=== PATIENT | male | born 1990 | race African-American/Black ===

== ENCOUNTER 2017-06-08 07:01 | Emergency (ER) | payer MEDICAID, OTHER | END 2017-06-08 08:20 | disposition left against medical advice (07) | LOC: ER 07:26 | DX: R05 Cough (principal); R10.9 Unspecified abdominal pain; R11.2 Nausea with vomiting, unspecified; Z53.21 Procedure and treatment not carried out due to patient leaving prior to being seen by health care provider ==

== ENCOUNTER 2018-01-31 13:50 | Emergency (ER) | payer MEDICAID, OTHER ==
[~2018-01-31] VITALS: Ht 172.7 cm; Wt 60.0 kg
[2018-01-31] MEDS ORDERED: LEVETIRACETAM 500MG TABLET PO ONE (14:45)
[2018-01-31 15:45] LABS: BASOPHILS % 0.7 % (0.0-2.0); EOSINOPHILS % 0.6 % (0.0-5.0); HEMATOCRIT. 46.7 % (42.0-52.0); HEMOGLOBIN. 15.9 g/dL (14.0-18.0); LYMPHOCYTES % 23.4 % (20.0-50.0); MEAN CORPUSCULAR VOLUME 79.4 fL (80.0-94.0); MEAN PLATELET VOLUME 9.3 fl (7.4-10.4); MONOCYTES % 4.9 % (2.0-8.0); NEUTROPHILS % 70.4 % (40.0-76.0); PLATELET 202 x1000/uL (130-400); RED BLOOD CELL COUNT 5.88 mill/uL (4.7-6.1)
[2018-01-31 15:49] LABS: CHLORIDE 104 mEq/L (98-107)
[2018-01-31 16:57] VITALS: BP 128/82
== END 2018-01-31 17:00 | disposition home or self-care (01) ==
LOC: ER 13:57
DX: G40.909 Epilepsy, unspecified, not intractable, without status epilepticus (principal); R03.0 Elevated blood-pressure reading, without diagnosis of hypertension
CPT/HCPCS: 36415; 80053; 85025; 99284